=== PATIENT | female | born 1970 | race Caucasian/White ===

== ENCOUNTER 2017-05-11 19:49 | Emergency (ER) | payer SELFPAY ==
[2017-05-11 21:06] VITALS: BP 109/74
--- NOTE | 2017-05-11 22:14 | UC ---
Throat Pain/Nasal Julio C HPI - HPI Summary HPI Summary: 47 yo female with sore throat since yesterday feverish chills myalgias daughter with strep - History of Current Complaint Chief Complaint: UCGeneralIllness Stated Complaint: SORE THROAT, CONGESTION, FATIGUE Time Seen by Provider: 05/11/17 22:07 Hx Obtained From: Patient Hx Last Menstrual Period: 4 months ago Onset/Duration: Gradual Onset, Lasting Hours Severity: Moderate Pain Intensity: 7 Pain Scale Used: 0-10 Numeric Cough: None Associated Signs & Symptoms: Positive: Fever - Epiglottits Risk Factors Epiglottis Risk Factors: Negative - Allergies/Home Medications Allergies/Adverse Reactions: Allergies Allergy/AdvReac Type Severity Reaction Status Date / Time MS Codeine [Codeine] Allergy Nausea And Verified 05/11/17 21:06 Vomiting PMH/Surg Hx/FS Hx/Imm Hx Previously Healthy: Yes - Surgical History Surgical History: Yes Surgery Procedure, Year, and Place: mass tissue on left breast. tubal ligation - Family History Known Family History: Positive: Hypertension - Social History Alcohol Use: Weekly Alcohol Amount: once a week Substance Use Type: None, Prescribed Smoking Status (MU): Former Smoker When Did the Patient Quit Smoking/Using Tobacco: 10 years ago Household Exposure Type: Cigarettes Review of Systems Constitutional: Fever, Chills, Fatigue Skin: Negative Eyes: Negative ENT: Sore Throat Respiratory: Negative Cardiovascular: Negative Gastrointestinal: Negative Genitourinary: Negative Motor: Negative Neurovascular: Negative Musculoskeletal: Negative Neurological: Negative Psychological: Negative Is Patient Immunocompromised?: No All Other Systems Reviewed And Are Negative: Yes Physical Exam Triage Information Reviewed: Yes Appearance: Well-Appearing, No Pain Distress, Well-Nourished Vital Signs: Initial Vital Signs Temp 99.0 F 05/11/17 21:03 Pulse 69 05/11/17 21:03 Resp 16 05/11/17 21:03 BP 109/74 05/11/17 21:03 Pulse Ox 100 05/11/17 21:03 Vital Signs Reviewed: Yes ENT: Positive: Hearing grossly normal, Pharyngeal erythema, Uvula midline. Negative: Tonsillar swelling, Tonsillar exudate Neck: Positive: Supple, Nontender, Enlarged Nodes @ - ant cerv Respiratory: Positive: Lungs clear, Normal breath sounds, No respiratory distress Cardiovascular: Positive: RRR, No Murmur Musculoskeletal: Positive: ROM Intact, No Edema Neurological: Positive: Alert Throat Pain/Nasal Course/Dx - Course Course Of Treatment: flu (-) - Differential Dx/Diagnosis Provider Diagnoses: pharyngitis Discharge - Discharge Plan Condition: Stable Disposition: HOME Prescriptions: Amoxicillin PO (*) [Amoxicillin 875 MG (*)] 875 mg PO BID #20 tab Patient Education Materials: Pharyngitis (ED) Forms: *Work Release Referrals: DAPHNEY Stephen [Primary Care Provider] - Additional Instructions: flu (-)
[2017-05-11] MEDS ORDERED: Amoxicillin PO (*) 500 MG CAP PO ONE (22:18)
== END 2017-05-11 22:24 | disposition home or self-care (01) ==
LOC: UCCORT 19:49
DX: J02.9 Acute pharyngitis, unspecified (principal); Z87.891 Personal history of nicotine dependence
CPT/HCPCS: 87502; 99212; A9270-GY; G0463

== ENCOUNTER 2018-07-19 12:54 | Emergency (ER) | payer SELFPAY ==
[2018-07-19 13:26] VITALS: BP 105/70
--- NOTE | 2018-07-19 13:37 | UC ---
UC General HPI - HPI Summary HPI Summary: 2 DAYS OF HEADACHE, LARYNGITIS AND COUGH. OTC TX WITH NO RELIEF. NO FEVER OR SOB. TX FOR STREP THROAT 2.5 WEEKS AGO AND ALL BETTER FROM THAT. HEADACHE RELIEF FROM MOTRIN. - History of Current Complaint Chief Complaint: UCGeneralIllness Stated Complaint: COUGH,CARTER Time Seen by Provider: 07/19/18 13:22 Hx Obtained From: Patient Hx Last Menstrual Period: 4 months ago Onset/Duration: Gradual Onset Timing: Constant Pain Intensity: 0 Associated Signs & Symptoms: Positive: Headache. Negative: Fever, SOB - Allergy/Home Medications Allergies/Adverse Reactions: Allergies Allergy/AdvReac Type Severity Reaction Status Date / Time codeine Allergy Nausea And Verified 07/19/18 13:18 Vomiting PMH/Surg Hx/FS Hx/Imm Hx Psychological History: Depression - Surgical History Surgical History: Yes Surgery Procedure, Year, and Place: mass tissue on left breast. tubal ligation - Family History Known Family History: Positive: Hypertension - Social History Alcohol Use: Occasionally Alcohol Amount: once a week Substance Use Type: None Smoking Status (MU): Former Smoker When Did the Patient Quit Smoking/Using Tobacco: 10 years ago Household Exposure Type: Cigarettes Review of Systems All Other Systems Reviewed And Are Negative: Yes Constitutional: Negative: Fever Respiratory: Positive: Cough. Negative: Shortness Of Breath Neurological: Positive: Headache Physical Exam Triage Information Reviewed: Yes Appearance: Well-Appearing Vital Signs: Initial Vital Signs Temp 98.2 F 07/19/18 13:19 Pulse 74 07/19/18 13:19 Resp 17 07/19/18 13:19 BP 105/70 07/19/18 13:19 Pulse Ox 98 07/19/18 13:19 Vital Signs Reviewed: Yes Eyes: Positive: Conjunctiva Clear ENT: Positive: Pharynx normal, TMs normal, Hoarse voice, Uvula midline. Negative: Nasal drainage, Trismus, Muffled voice Neck: Positive: Supple, Nontender, No Lymphadenopathy Respiratory: Positive: Lungs clear, Normal breath sounds, No respiratory distress Cardiovascular: Positive: RRR, No Murmur Abdomen Description: Positive: Nontender Musculoskeletal: Positive: ROM Intact Neurological: Positive: Alert Psychological: Positive: Age Appropriate Behavior Skin Exam: Normal Course/Dx - Diagnoses Provider Diagnosis: Laryngitis, Cough Discharge - Sign-Out/Discharge Documenting (check all that apply): Patient Departure All imaging exams completed and their final reports reviewed: No Studies - Discharge Plan Condition: Stable Disposition: HOME Prescriptions: predniSONE TAB* [Deltasone TAB*] 50 mg PO DAILY 3 Days #3 tab Patient Education Materials: Laryngitis (ED), Acute Cough (ED) Forms: *Work Release Referrals: DAPHNEY Stephen [Medical Doctor] - Additional Instructions: FOLLOW UP IF NOT BETTER IN 3-5 DAYS OR SOONER IF WORSE - Billing Disposition and Condition Condition: STABLE Disposition: Home - Attestation Statements Provider Attestation: Chart reviewed. I was available for consult. I did not see nor disposition this patient.
== END 2018-07-19 13:45 | disposition home or self-care (01) ==
LOC: UCCORT 12:54
DX: J04.0 Acute laryngitis (principal); R51 Headache; R05 Cough; F32.9 Major depressive disorder, single episode, unspecified; Z88.5 Allergy status to narcotic agent; Z87.891 Personal history of nicotine dependence
CPT/HCPCS: 99212; G0463

== ENCOUNTER 2019-04-20 15:13 | Emergency (ER) | payer SELFPAY ==
[2019-04-20 15:27] VITALS: BP 108/72
--- NOTE | 2019-04-20 15:51 | UC ---
Complaint Female HPI - HPI Summary HPI Summary: 49-year-old female who has had burning on urination and frequency over the past 2 days. She denies any fever or chills. She also has an upper respiratory illness with head congestion which started 2 days ago as well. - History Of Current Complaint Chief Complaint: UCGeneralIllness Stated Complaint: SINUSES/URNIARY Time Seen by Provider: 04/20/19 15:35 Hx Obtained From: Patient Hx Last Menstrual Period: 4 months ago ?: No Onset/Duration: Gradual Onset Timing: Intermittent Severity Initially: Mild Severity Currently: Mild Pain Intensity: 5 Character: Burning Aggravating Factor(s): Urination Associated Signs And Symptoms: Negative: Fever, Back Pain, Vaginal Bleeding/ Discharge, Vaginal Discharge - Allergies/Home Medications Allergies/Adverse Reactions: Allergies Allergy/AdvReac Type Severity Reaction Status Date / Time codeine Allergy Nausea And Verified 04/20/19 15:20 Vomiting Home Medications: Home Medications Acetaminophen [Tylenol Extra Strength] 1,000 mg PO ONCE 04/20/19 [History Confirmed 04/20/19] PMH/Surg Hx/FS Hx/Imm Hx Previously Healthy: Yes Neurological History: Seizures Psychological History: Depression - Surgical History Surgical History: Yes Surgery Procedure, Year, and Place: mass tissue on left breast. tubal ligation - Family History Known Family History: Positive: Hypertension - Social History Lives: With Family Alcohol Use: Occasionally Alcohol Amount: once a week Substance Use Type: None Smoking Status (MU): Former Smoker When Did the Patient Quit Smoking/Using Tobacco: 10 years ago Household Exposure Type: Cigarettes Review of Systems All Other Systems Reviewed And Are Negative: Yes ENT: Positive: Nasal Discharge, Sinus Congestion Respiratory: Positive: Cough - Occasional nonproductive cough. Genitourinary: Positive: Dysuria, Frequency, Urgency Is Patient Immunocompromised?: No Physical Exam Triage Information Reviewed: Yes Appearance: Well-Appearing, No Pain Distress, Well-Nourished Vital Signs: Initial Vital Signs Temp 98.4 F 04/20/19 15:21 Pulse 72 04/20/19 15:21 Resp 18 04/20/19 15:21 BP 108/72 04/20/19 15:21 Pulse Ox 100 04/20/19 15:21 Vital Signs Reviewed: Yes Eyes: Positive: Conjunctiva Clear ENT: Positive: Hearing grossly normal, Pharynx normal, TMs normal, Uvula midline Neck: Positive: Supple, Nontender, No Lymphadenopathy Respiratory: Positive: Lungs clear, Normal breath sounds, No respiratory distress, No accessory muscle use Cardiovascular: Positive: RRR, No Murmur, Pulses Normal, Brisk Capillary Refill Abdomen Description: Positive: Nontender, No Organomegaly, Soft. Negative: CVA Tenderness (R), CVA Tenderness (L), Distended, Guarding, Hepatomegaly, Splenomegaly Bowel Sounds: Positive: Present Musculoskeletal Exam: Normal Neurological Exam: Normal Psychological Exam: Normal Skin Exam: Normal Complaint Female Dx - Course Course Of Treatment: Urinalysis: Positive for leukocytes At this point in time the head congestion I believe is more viral since she's only had 2 days and her son recently had cold symptoms. I am going to treat her for urinary tract infection - Differential Dx/Diagnosis Provider Diagnosis: UTI (urinary tract infection), URI (upper respiratory infection) Discharge ED - Sign-Out/Discharge Documenting (check all that apply): Patient Departure All imaging exams completed and their final reports reviewed: No Studies - Discharge Plan Condition: Good Disposition: HOME Prescriptions: Phenazopyridine TAB* [Pyridium 100 mg TAB*] 100 mg PO TID PRN 2 Days #6 tab PRN Reason: Spasms Sulfamethox/Trimethoprim DS* [Bactrim DS 800/160 TAB*] 1 tab PO BID 5 Days #10 tab Patient Education Materials: Urinary Tract Infection in Women (DC), Upper Respiratory Infection (ED) Referrals: No Primary Care Phys,NOPCP [Primary Care Provider] - [facility] [Outside] Additional Instructions: Increase fluids, the Pyridium will turn your urine orange. Follow-up with your primary care doctor for [facility] if you develop worsening symptoms or no improvement in 3 or 4 days. - Billing Disposition and Condition Condition: GOOD Disposition: Home
== END 2019-04-20 16:09 | disposition home or self-care (01) ==
LOC: UCCORT 15:13
DX: N39.0 Urinary tract infection, site not specified (principal); J06.9 Acute upper respiratory infection, unspecified; Z88.5 Allergy status to narcotic agent; Z87.891 Personal history of nicotine dependence
CPT/HCPCS: 81003; 87086; 99212; G0463